=== PATIENT | male | born 1960 | race Caucasian/White ===

== ENCOUNTER 2017-10-12 10:00 | Outpatient (CLI) | payer OTHER | END 2017-10-12 17:00 | disposition home or self-care (01) | LOC: HPC 17:00 | DX: K43.9 Ventral hernia without obstruction or gangrene (principal); R53.1 Weakness; K42.9 Umbilical hernia without obstruction or gangrene; K70.30 Alcoholic cirrhosis of liver without ascites; I85.00 Esophageal varices without bleeding; R16.1 Splenomegaly, not elsewhere classified; B19.20 Unspecified viral hepatitis C without hepatic coma | CPT/HCPCS: Z7500 ==